=== PATIENT | male | born 1945 | race Caucasian/White ===

== ENCOUNTER 2017-06-06 10:39 | Emergency (ER) | payer OTHER ==
[~2017-06-06] VITALS: Ht 180.3 cm; Wt 72.0 kg
[~2017-06-06 10:39] MED LIST: ASPI-515 PO; BUTA-177 PO; BUTA1CAP57 PO; CLON-365 PO; DIAZ2TAB PO; DIVA500T4 PO; DOXE10CA PO; LISI-170 PO; LISI1TAB7 PO; MAGN400T26 PO; METO50TA82 PO; ONDA4TAB13 PO
[2017-06-06 10:42] VITALS: BP 120/76
[2017-06-06] MEDS ORDERED: ACETAMINOPHEN 325 MG TABLET PO ONE (12:30)
[2017-06-06] MEDS ORDERED: ACETAMINOPHEN 325 MG TABLET ONE (12:31)
== END 2017-06-06 13:00 | disposition home or self-care (01) ==
LOC: ED 12:54
DX: S22.31XA Fracture of one rib, right side, initial encounter for closed fracture (principal); G43.909 Migraine, unspecified, not intractable, without status migrainosus; F41.9 Anxiety disorder, unspecified; F32.9 Major depressive disorder, single episode, unspecified; W01.0XXA Fall on same level from slipping, tripping and stumbling without subsequent striking against object, initial encounter; Y93.89 Activity, other specified; Y92.098 Other place in other non-institutional residence as the place of occurrence of the external cause; Y99.8 Other external cause status
CPT/HCPCS: 99284